=== PATIENT | male | born 1970 | race Caucasian/White ===

== ENCOUNTER 2017-11-07 23:22 | Inpatient (IN) | payer SELFPAY ==
[2017-11-07 23:20] VITALS: O2SAT 100
[2017-11-07 23:22] VITALS: O2SAT 100
[2017-11-07] MEDS ORDERED: ETOMIDATE 20 MG/10 ML VIAL ONE (23:25)
[2017-11-07] MEDS ORDERED: PROPOFOL 1000 MG/100 ML INJ 100 ML ONE (23:33)
[2017-11-07] MEDS ORDERED: ceFAZolin 2 GM PREMIX 50 ML ONE (23:38)
[2017-11-07] MEDS ORDERED: DIPHTH/TETANUS/ACEL PERTUSSIS (BOOSTER) 0.5 ML VIAL/PFS IM ONE (23:38)
[2017-11-07] MEDS ORDERED: MIDAZOLAM HCL 5 MG/ML VIAL (1 ML) ONE (23:43)
[2017-11-07 23:44] LABS: AUTOMATED NEUTROPHIL # 6.2 TH/MM3 (1.8-7.7); BASOPHIL # 0.1 TH/MM3 (0-0.2); BASOPHIL % 0.6 % (0.0-2.0); EOSINOPHIL # 0.1 TH/MM3 (0-0.4); EOSINOPHIL % 1.2 % (0.0-4.0); HEMATOCRIT 42.2 % (39.0-51.0); HEMOGLOBIN 15.3 GM/DL (13.0-17.0); LYMPH % 38.2 % (9.0-44.0); LYMPHOCYTE # 4.5 TH/MM3 (1.0-4.8); MEAN CELL VOLUME 96.9 FL (80.0-100.0); MEAN CORPUSCULAR HEMOGLOBIN 35.2 PG (27.0-34.0); MEAN PLATELET VOLUME 8.8 FL (7.0-11.0); MONO % 7.7 % (0.0-8.0); MONOCYTE # 0.9 TH/MM3 (0-0.9); NEUT % 52.3 % (16.0-70.0); PLATELET COUNT 232 TH/MM3 (150-450); RED BLOOD COUNT 4.35 MIL/MM3 (4.50-5.90); RED CELL DISTRIBUTION WIDTH 13.4 % (11.6-17.2); WHITE BLOOD COUNT 11.9 TH/MM3 (4.0-11.0)
[2017-11-07 23:45] VITALS: O2SAT 100
[2017-11-07 23:50] LABS: MEAN CORPUSCULAR HGB CONC 36.4 % (32.0-36.0)
[2017-11-07] MEDS ORDERED: MIDAZOLAM 100 MG/100 ML INJ 100 ML ONE (23:56)
[2017-11-07] MEDS ORDERED: fentaNYL DRIP 250 ML ONE (23:56)
[2017-11-08] VITALS (16 sets, daily range): BP systolic 103–130; BP diastolic 57–90; PULSE 72–97; RESP 12–24; TEMP 97.3–99; O2SAT 95–100
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
[2017-11-08] MEDS ORDERED: IOHEXOL 350 MG/ML 10 ML VIAL (for RAD DIAG) IVCONTRAST ONE (00:05)
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
[2017-11-08] MEDS: SODIUM CHLOR 0.9% 1000 ML INJ 1,000 ML IV SCH ×3 (00:06→23:36)
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
[2017-11-08 00:12] LABS: PROTHROMBIN TIME - PATIENT 9.9 SEC (9.8-11.6)
[2017-11-08] MEDS ORDERED: Post-op Orders (for Pharmacy) XX ONE (00:15)
[2017-11-08] MEDS ORDERED: ONDANSETRON HCL 4 MG/2 ML VIAL IV PUSH PRN (00:15)
[2017-11-08] MEDS ORDERED: fentaNYL DRIP 250 ML IV PRN (00:15)
[2017-11-08] MEDS ORDERED: NALOXONE HCL 0.4 MG/ML AMP IV PUSH PRN (00:15)
[2017-11-08] MEDS ORDERED: PROPOFOL 1000 MG/100 ML INJ 100 ML IV PRN (00:15)
[2017-11-08] MEDS ORDERED: SODIUM CHLORIDE 0.9% FLUSH 10 ML FLUSH IV FLUSH PRN (00:15)
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
[2017-11-08] MEDS: PROPOFOL 1000 MG/100 ML IV PRN ×2 (00:30→03:14)
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
[2017-11-08] MEDS ORDERED: fentaNYL 2,500 MCG/NS 250 ML IV PRN (01:30)
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
[2017-11-08] MEDS: PANTOPRAZOLE SODIUM 40 MG VIAL IV PUSH SCH ×2 (03:02→23:37)
[2017-11-08] MEDS: levETIRAcetam INJ 500 MG in SODIUM CHLORIDE 0.9% INJ 100 ML IV SCH ×3 (03:03→23:37)
[2017-11-08] MEDS ORDERED: DEXMEDETOMIDINE INJ 200 MCG in SODIUM CHLORIDE 0.9% INJ 50 ML IV PRN (08:00)
[2017-11-08] MEDS ORDERED: DEXMEDETOMIDINE HCL 200 MCG/2 ML VIAL IV PUSH ONE (08:00)
[2017-11-08] MEDS: SODIUM CHLORIDE 0.9% FLUSH 10 ML FLUSH IV FLUSH SCH ×2 (08:07→21:07)
[2017-11-08] MEDS: CHLORHEXIDINE 0.12% (ORAL KIT) 15 ML CUP MT SCH ×2 (08:07→20:00)
[2017-11-08] MEDS: BACITRACIN TOP OINT 15 GM TUBE TOPICAL SCH ×2 (08:07→21:07)
[2017-11-08] MEDS ORDERED: oxyCODONE/ACETAMINOPHEN 10 MG/325 MG TAB PO PRN (11:00)
[2017-11-08] MEDS: REMOVE OLD PATCH T-DERMAL SCH (11:41)
[2017-11-08] MEDS: LIDOCAINE HCL 5% PATCH T-DERMAL SCH (11:41)
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
[2017-11-08] MEDS: MORPHINE SULFATE 2 MG/ML INJ IV PUSH PRN ×2 (12:17→23:37)
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
[2017-11-08] MEDS: METHOCARBAMOL 500 MG TAB PO SCH ×2 (13:46→21:06)
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
[2017-11-08] MEDS: oxyCODONE/ACETAMINOPHEN 5 MG/325 MG TAB PO PRN ×2 (15:50→21:06)
--- NOTE | 2017-11-08 17:12 | RADRPT ---
EXAM DATE/TIME: 11/08/2017 16:43 [facility] COMPARISON: CT BRAIN W/O CONTRAST, November 07, 2017, 23:52. INDICATIONS : Trauma follow up bleed RADIATION DOSE: 42.01 CTDIvol (mGy) MEDICAL HISTORY : None SURGICAL HISTORY : None. ENCOUNTER: Initial ACUITY: 2 days PAIN SCALE: 5/10 LOCATION: cranial TECHNIQUE: Multiple contiguous axial images were obtained of the head. Using automated exposure control and adj ustment of the mA and/or kV according to patient size, radiation dose was kept as low as reasonably a chievable to obtain optimal diagnostic quality images. DICOM format image data is available electro nically for review and comparison. FINDINGS: Deep retinal bleed identified on the previous study in the left insular region is increased in promin ence and more well-defined measuring 1 cm in maximal dimension on the current study. There is no surr ounding edema. No additional foci of hemorrhage are seen. Bilateral maxillary sinus, sphenoid sinus a nd ethmoid air cell mucosal thickening is present. There are no fractures. CONCLUSION: 1. Bilateral paranasal sinus mucosal thickening. 2. No signs of mass or acute infarction. 3. 1 cm intraparenchymal bleed as above. Luis E Pappas MD on November 08, 2017 at 17:09 Board Certified Radiologist. This report was verified electronically.
[2017-11-08] MEDS: MAGNESIUM HYDROXIDE SUSP 30 ML CUP PO SCH (21:06)
[2017-11-08] MEDS: DOCUSATE SODIUM 50 MG/SENNA 8.6 MG TAB PO SCH (21:06)
[2017-11-09] VITALS (8 sets, daily range): BP systolic 121–151; BP diastolic 71–88; PULSE 72–87; RESP 12–26; TEMP 98.4–99; O2SAT 93–99
[2017-11-09] MEDS: oxyCODONE/ACETAMINOPHEN 5 MG/325 MG TAB PO PRN ×5 (03:14→22:51)
[2017-11-09 04:30] LABS: AUTOMATED NEUTROPHIL # 8.2 TH/MM3 (1.8-7.7); BASOPHIL # 0.1 TH/MM3 (0-0.2); BASOPHIL % 0.5 % (0.0-2.0); EOSINOPHIL # 0.2 TH/MM3 (0-0.4); EOSINOPHIL % 1.6 % (0.0-4.0); HEMATOCRIT 37.8 % (39.0-51.0); LYMPHOCYTE # 1.8 TH/MM3 (1.0-4.8); MEAN CELL VOLUME 99.2 FL (80.0-100.0); MEAN CORPUSCULAR HEMOGLOBIN 34.1 PG (27.0-34.0); MEAN CORPUSCULAR HGB CONC 34.3 % (32.0-36.0); MEAN PLATELET VOLUME 9.2 FL (7.0-11.0); MONO % 10.4 % (0.0-8.0); MONOCYTE # 1.2 TH/MM3 (0-0.9); NEUT % 71.5 % (16.0-70.0); PLATELET COUNT 177 TH/MM3 (150-450); RED BLOOD COUNT 3.81 MIL/MM3 (4.50-5.90); RED CELL DISTRIBUTION WIDTH 13.6 % (11.6-17.2); WHITE BLOOD COUNT 11.5 TH/MM3 (4.0-11.0)
[2017-11-09 05:03] LABS: BICARBONATE 23.2 MEQ/L (21.0-32.0); CALCIUM 8.2 MG/DL (8.5-10.1); CREATININE 0.9 MG/DL (0.60-1.30)
[2017-11-09] MEDS: SODIUM CHLOR 0.9% 1000 ML INJ 1,000 ML IV SCH ×2 (06:06→14:45)
[2017-11-09] MEDS: METHOCARBAMOL 500 MG TAB PO SCH ×3 (06:25→21:10)
[2017-11-09] MEDS: CHLORHEXIDINE 0.12% (ORAL KIT) 15 ML CUP MT SCH (07:47)
--- NOTE | 2017-11-09 08:08 | HHI.PR ---
Neuropsych Behavior Behavior: Intact: Impulsive/Agitated Cognitive Cognitive: Moderate: Cognitive, Attention/Concentration, Confused/Orientation, Insight/Awareness, Judgement/Problem-Solving, Memory Psychosocial Psychosocial: Intact: Psychosocial, Family/Other Adjustment, Realistic Expectation, Unable to Asses: Self-Esteem/Confidence Progress Notes/Response to Tx Contents of Sessions: Adjustment, Level of Consciousness Time with Patient: 15 minutes Premorbid psychological status Premorbid Cognitive, Emotional and Behavioral Status: Tenuous. The patient has high school years of education and a solid work history prior to this injury. The patient has no prior psychiatric difficulties, as described above. Substance abuse history is significant for alcohol use. Behavioral Reactions of Patient and Family/Support System: Stable. The patient s family is experiencing ongoing issues of adjustment given the nature of the injury, and this aspect of recovery will require ongoing monitoring. Emotional/Behavioral Status of Patient and Family/Support System: Stable. Pertinent issues, if appropriate to this patients clinical care, are described in detail above. Maximizing acute care outcome It is recommended that the patient be monitored for emergent behavioral impulsivity as the medical condition evolves. This patients neuropathological challenges may limit his rehabilitation potential going forward, and these challenges will require specialized therapeutic skills to maximize outcome. At this point in the recovery process, the patient has improving cognitive capacity as the patient is in a better position to understand a situation and its likely consequences, yet he still has difficulties in his ability to manipulate information rationally. Cognitive capacity will be assessed throughout the recovery process. Anticipated Problems Ongoing areas of concern will include behavioral impulsivity, lack of insight and judgment, which is expected to improve with time and treatment. Presently , the patient intubated and sedated. Given the severity of the patient's injuries it is my clinical opinion that this patient will be unable to return to any type of productive employment for at least one year, perhaps longer and likely never. This patient is not considered safe to discharge home without supervision. Treatment Plan This clinician will continue to follow with you throughout the course of this patients critical care treatment, and I will be available to meet with the patients family/support system to facilitate their understanding and the ongoing care of their family member. The goals of neuropsychological intervention shall be both educational and supportive to the family/support system as is deemed clinically appropriate. [facility] Level: V:Confused-non agitated Impression 47 year old male s/p TBI 2T [facility] on 11/08/2017. Diagnosis: (1) Mild major neurocognitive disorder due to traumatic brain injury with behavioral disturbance Progress Note Narrative PTD 1. The patient is stable medically, improved neurobehaviorally but reportedly restless. He is extubated, and somewhat confused. A major concern is possible alcohol withdrawal in the next two to three days. For restlessness , consider VPA 250 BID. He is [place], but may regress. I will follow. Jagjit Starr PhD Nov 09, 2017 8:08 am
[2017-11-09] MEDS: MAGNESIUM HYDROXIDE SUSP 30 ML CUP PO SCH ×2 (08:10→21:10)
[2017-11-09] MEDS: LIDOCAINE HCL 5% PATCH T-DERMAL SCH (08:10)
[2017-11-09] MEDS: SODIUM CHLORIDE 0.9% FLUSH 10 ML FLUSH IV FLUSH SCH ×2 (08:10→21:09)
[2017-11-09] MEDS: REMOVE OLD PATCH T-DERMAL SCH (08:10)
[2017-11-09] MEDS: DOCUSATE SODIUM 50 MG/SENNA 8.6 MG TAB PO SCH ×2 (08:10→21:10)
[2017-11-09] MEDS: BACITRACIN TOP OINT 15 GM TUBE TOPICAL SCH ×2 (08:11→21:19)
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
[2017-11-09] MEDS: levETIRAcetam 500 MG TAB PO SCH ×2 (11:20→21:10)
[2017-11-09] MEDS: MORPHINE SULFATE 2 MG/ML INJ IV PUSH PRN (12:42)
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
[2017-11-10] VITALS: BP 135/77; PULSE 72; RESP 13; TEMP 98.5; O2SAT 96
[2017-11-10] MEDS: SODIUM CHLOR 0.9% 1000 ML INJ 1,000 ML IV SCH (01:58)
[2017-11-10 04:00] VITALS: BP 130/85; PULSE 72; RESP 18; TEMP 98.2; O2SAT 97
[2017-11-10] MEDS: oxyCODONE/ACETAMINOPHEN 5 MG/325 MG TAB PO PRN (04:00)
[2017-11-10 04:03] LABS: AUTOMATED NEUTROPHIL # 5.7 TH/MM3 (1.8-7.7); BASOPHIL # 0.1 TH/MM3 (0-0.2); BASOPHIL % 0.8 % (0.0-2.0); EOSINOPHIL # 0.1 TH/MM3 (0-0.4); EOSINOPHIL % 1.5 % (0.0-4.0); HEMATOCRIT 36.8 % (39.0-51.0); HEMOGLOBIN 12.7 GM/DL (13.0-17.0); LYMPHOCYTE # 1.4 TH/MM3 (1.0-4.8); MEAN CELL VOLUME 98.1 FL (80.0-100.0); MEAN CORPUSCULAR HGB CONC 34.6 % (32.0-36.0); MEAN PLATELET VOLUME 9.1 FL (7.0-11.0); MONO % 9.7 % (0.0-8.0); MONOCYTE # 0.8 TH/MM3 (0-0.9); PLATELET COUNT 172 TH/MM3 (150-450); RED BLOOD COUNT 3.75 MIL/MM3 (4.50-5.90); RED CELL DISTRIBUTION WIDTH 13.5 % (11.6-17.2)
[2017-11-10 04:25] LABS: BICARBONATE 27.3 MEQ/L (21.0-32.0); CALCIUM 7.8 MG/DL (8.5-10.1); CREATININE 0.84 MG/DL (0.60-1.30)
[2017-11-10] MEDS: METHOCARBAMOL 500 MG TAB PO SCH ×2 (05:53→13:02)
[2017-11-10 08:00] VITALS: BP 120/76; PULSE 62; PULSE 79; RESP 23; TEMP 98; O2SAT 98
[2017-11-10] MEDS: levETIRAcetam 500 MG TAB PO SCH (09:00)
[2017-11-10] MEDS: LIDOCAINE HCL 5% PATCH T-DERMAL SCH (09:00)
[2017-11-10] MEDS: BACITRACIN TOP OINT 15 GM TUBE TOPICAL SCH (09:00)
[2017-11-10] MEDS ORDERED: PERI PO (09:21)
[2017-11-10] MEDS ORDERED: MAGN30S PO (09:21)
[2017-11-10] MEDS ORDERED: WALKER WHEELS/F1 MIS (09:24)
--- NOTE | 2017-11-10 09:47 | RADRPT ---
EXAM DATE/TIME: 11/10/2017 09:12 [facility] COMPARISON: CHEST SINGLE AP, November 07, 2017, 23:38. INDICATIONS : Evaluate for pulmonary contusion. MEDICAL HISTORY : None. SURGICAL HISTORY : None. ENCOUNTER: Subsequent ACUITY: 3 days PAIN SCORE: 0/10 LOCATION: Bilateral chest FINDINGS: Left basilar streakiness is noted consistent with atelectasis and/or developing pneumonia. Right lung is clear. The heart is stable. CONCLUSION: Left basilar streakiness consistent with atelectasis and/or developing pneumonia. Rick Roberts MD on November 10, 2017 at 9:45 Board Certified Radiologist. This report was verified electronically.
[2017-11-10] MEDS ORDERED: OXYC1TAB63 PO (10:49)
[2017-11-10] MEDS ORDERED: LEVE500 PO (10:49)
[2017-11-10] MEDS ORDERED: METH500T3 PO (10:49)
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
== END 2017-11-10 14:28 | disposition home or self-care (01) | DRG 963 ==
LOC: NEPI 23:22 → N03A 11-08 00:09 → EDBD 11-08 00:09
PROVIDERS: ADMIT Surgery; ATTEND Surgery
PROC: 0BH17EZ Insertion of Endotracheal Airway into Trachea, Via Natural or Artificial Opening (ICD-10-PCS; principal; 2017-11-08)
PROC: 5A1935Z Respiratory Ventilation, Less than 24 Consecutive Hours (ICD-10-PCS; 2017-11-08)
DX: S06.369A Traumatic hemorrhage of cerebrum, unspecified, with loss of consciousness of unspecified duration, initial encounter (principal); J96.00 Acute respiratory failure, unspecified whether with hypoxia or hypercapnia; S27.321A Contusion of lung, unilateral, initial encounter; G93.40 Encephalopathy, unspecified; S02.609A Fracture of mandible, unspecified, initial encounter for closed fracture; S22.32XA Fracture of one rib, left side, initial encounter for closed fracture; S81.811A Laceration without foreign body, right lower leg, initial encounter; T14.8XXA Other injury of unspecified body region, initial encounter; S01.111A Laceration without foreign body of right eyelid and periocular area, initial encounter; F10.129 Alcohol abuse with intoxication, unspecified; G31.84 Mild cognitive impairment of uncertain or unknown etiology; S81.011A Laceration without foreign body, right knee, initial encounter; F19.90 Other psychoactive substance use, unspecified, uncomplicated; R40.2412 Glasgow coma scale score 13-15, at arrival to emergency department; Y90.8 Blood alcohol level of 240 mg/100 ml or more; V29.88XA Motorcycle rider (driver) (passenger) injured in other specified transport accidents, initial encounter; Y92.410 Unspecified street and highway as the place of occurrence of the external cause
CPT/HCPCS: 31500; 36600; 70450; 70486; 71045; 71260; 72125; 72170; 73560; 73590; 74177; 80048; 80307; 82805; 85025; 85610; 85730; 86850; 86900; 86901; 87641; 90471; 90715; 94002; 94003; 94640; 94667; 94668; 96374; 96375; 99291; C9113; G0390; J0690; J1953; J2250; J2270; J3010; J7030; Q9967